=== PATIENT | male | born 1995 | race Caucasian/White ===

== ENCOUNTER 2022-02-03 13:04 | Emergency (ER) | payer SELFPAY ==
[~2022-02-03] VITALS: Ht 188 cm; Wt 63.5 kg
[2022-02-03 13:29] VITALS: BP 121/77
--- NOTE | 2022-02-03 13:38 | NUR ---
PT AMB TO BED 7.
--- NOTE | 2022-02-03 13:40 | NUR ---
PT AMBULATED TO BED 05.
[2022-02-03] MEDS ORDERED: KETOROLAC 30 MG/ML VIAL IM ONE (14:25)
--- NOTE | 2022-02-03 14:56 | NUR ---
Patient taken to imaging via gurney.
[2022-02-03] MEDS ORDERED: CYCL-711 PO (15:51)
[2022-02-03] MEDS ORDERED: IBUP-2213 PO (15:51)
[2022-02-03 16:01] VITALS: BP 114/65
--- NOTE | 2022-02-03 16:01 | NUR ---
Patient discharged with v/s stable. Written and verbal after care instructions given. Patient alert, oriented and verbalized understanding of instructions. Ambulatory with steady gait. All questions addressed prior to discharge. ID band removed. Patient advised to follow up with PMD. Rx of Fleceril and Ibuprofen given. Opportunity to ask questions provided and answered.
== END 2022-02-03 16:01 | disposition home or self-care (01) ==
LOC: MED 13:04
DX: S20.211A Contusion of right front wall of thorax, initial encounter (principal); R03.0 Elevated blood-pressure reading, without diagnosis of hypertension; Z72.89 Other problems related to lifestyle; W18.30XA Fall on same level, unspecified, initial encounter; Y93.89 Activity, other specified; Y92.89 Other specified places as the place of occurrence of the external cause; Y99.8 Other external cause status
CPT/HCPCS: 71101; 81002; 93005; 96372; 99283; J1885